=== PATIENT | female | born 1945 | race Caucasian/White ===

== ENCOUNTER → 2016-07-25 | Outpatient (REF) | payer MEDICARE, OTHER | LOC: M SFHCPLAZ 13:39 | PROVIDERS: ATTEND Family Medicine | DX: R00.0 Tachycardia, unspecified (principal); Z53.8 Procedure and treatment not carried out for other reasons ==

== ENCOUNTER → 2016-09-09 | Outpatient (CLI) | payer MEDICARE, OTHER ==
--- NOTE | 2016-09-09 14:36 | REP ---
Chest two views HISTORY: Hypertension Comparison: 08/29/2014 The lungs are clear. The heart is normal in size. The pulmonary vasculature is normal in appearance. The bony structure is intact. IMPRESSION: No acute disease. Signed by Rafita Mckeon MD 09/09/2016 02:27 P
== END ==
LOC: M RAD 14:12
PROVIDERS: ATTEND Physician Assistant
DX: I11.9 Hypertensive heart disease without heart failure (principal)

== ENCOUNTER → 2016-11-13 | Outpatient (CLI) | payer MEDICARE, BC, OTHER ==
--- NOTE | 2016-11-14 07:55 | REP ---
Clinical: Complex renal cyst. Technique: Real time michel scale ultrasound examination using curved array transducer. Comparison: 11/09/2015, 04/23/2015. Findings: The right kidney measures 10.5 x 5.0 x 6.2 cm and appears relatively normal in reniform shape and echogenicity without hydronephrosis, nephrolithiasis or mass lesion. Septated mid to upper pole cyst measures 3.9 x 3.6 x 3.8 cm and is essentially unchanged compared to 04/23/2015. The left kidney measures 10.5 x 5.8 x 5.9 cm and appears normal in reniform shape and echogenicity without hydronephrosis, nephrolithiasis, cystic or mass lesion. Bladder is grossly unremarkable. Impression: Stable right renal cyst with a single thin septation unchanged compared to 2014. Otherwise normal renal ultrasound. Signed by Flavio Bradley MD 11/13/2016 10:29 A
== END ==
LOC: M RAD 09:49
PROVIDERS: ATTEND Internal Medicine
DX: N28.1 Cyst of kidney, acquired (principal)

== ENCOUNTER → 2016-12-26 | Outpatient (CLI) | payer MEDICARE, BC, OTHER ==
[2016-12-26 10:14] LABS: MEAN CORPUSCULAR HEMOGLOBIN 29.8 pg (27.0-33.0); MEAN CORPUSCULAR HGB CONC 33.4 g/dl (32.0-36.5); MEAN CORPUSCULAR VOLUME 89.1 fl (80.0-96.0); RED CELL DISTRIBUTION WIDTH 12.6 % (11.5-14.5); WHITE BLOOD COUNT 6.4 K/mm3 (4.0-10.0)
== END ==
LOC: M LAB 09:29
PROVIDERS: ATTEND Internal Medicine
DX: R14.1 Gas pain (principal)

== ENCOUNTER → 2017-01-12 | Outpatient (CLI) | payer MEDICARE, BC, OTHER ==
--- NOTE | 2017-01-12 12:38 | REPMRS ---
Patient History The patient states she has not had a clinical breast exam in over a year. Patient is postmenopausal and is nulliparous. Family history of breast cancer in mother and breast cancer in maternal grandmother. Digital Mammo Screening Bilat: January 12, 2017 - Exam #: [id number] Bilateral CC and MLO view(s) were taken. Technologist: Chula Lawson, Technologist Prior study comparison: May 24, 2015, right breast digital mammo diagnostic unilateral performed at [facility]. May 01, 2015, digital woman screen mammo, performed at [facility]. October 12, 2013, digital woman screen mammo, performed at [facility]. FINDINGS: There are scattered fibroglandular densities. There has been no change in the appearance of the mammogram from the prior studies. There is a mild amount of scattered fibroglandular density which is fairly symmetric. There is no interval development of dominant mass, architectural distortion, or clustered microcalcification suggestive of malignancy. ASSESSMENT: BI-RADS/ACR category 1 mammogram. Negative. Recommendation Routine screening mammogram in 1 year (for women over age 40). This mammogram was interpreted with the aid of an FDA-approved computer-aided dectection system. Electronically Signed By: Ander Connors MD 01/12/17 [id number]
== END ==
LOC: M RAD 12:03
PROVIDERS: ATTEND Internal Medicine
DX: Z12.31 Encounter for screening mammogram for malignant neoplasm of breast (principal); Z78.0 Asymptomatic menopausal state; Z92.89 Personal history of other medical treatment; Z80.3 Family history of malignant neoplasm of breast

== ENCOUNTER 2017-04-19 20:51 | Emergency (ER) | payer MEDICARE, BC, OTHER ==
[~2017-04-19] VITALS: Ht 162.6 cm; Wt 118.2 kg
[2017-04-19] MEDS ORDERED: SPIR25TA2 PO (21:12)
[2017-04-19] MEDS ORDERED: CEFT500T3 PO (21:12)
[2017-04-19] MEDS ORDERED: OCUTTAB2 PO (21:12)
[2017-04-19] MEDS ORDERED: ASPI81TA85 PO (21:12)
[2017-04-19] MEDS ORDERED: TRAV04OPD OU (21:12)
[2017-04-19] MEDS ORDERED: OPTI0.5D5 OU (21:12)
[2017-04-19] MEDS ORDERED: ATOR1TAB19 PO (21:12)
[2017-04-19] MEDS ORDERED: RAMI10CA PO (21:12)
[2017-04-19] MEDS ORDERED: ONDANSETRON 4 MG TAB (S0181) PO ONE (22:15)
[2017-04-19] MEDS ORDERED: diphenhydrAMINE 50 MG CAP PO ONE (23:00)
[2017-04-19] MEDS ORDERED: ALBUTEROL 90 MCG/ACT 8GM HFA INHALER INH ONE (23:00)
[2017-04-19] MEDS ORDERED: ZITHTAB PO (23:05)
[2017-04-19] MEDS ORDERED: predniSONE 20 MG TAB PO ONE (23:15)
[2017-04-19] MEDS ORDERED: MEDR4PAK PO (23:22)
[2017-04-20 00:17] VITALS: BP 165/99
== END 2017-04-20 00:18 | disposition home or self-care (01) ==
LOC: M ED 20:51
DX: R13.10 Dysphagia, unspecified (principal); T78.40XA Allergy, unspecified, initial encounter

== ENCOUNTER 2018-04-21 10:23 | Day surgery (SDC) | payer MEDICARE, BC, OTHER ==
[~2018-04-21 10:23] MED LIST: ACETAMINOPHEN 325 MG TAB PO; PHENYLEPHRINE HCL 10 % OPHTH. SOL 5ML OS; PROPARACAINE 0.5% OPHTH SOL 15ML OS
[2018-04-21] MEDS: PHENYLEPHRINE 2.5% OPHTH SOL 2ML OS (12:18)
[2018-04-21] MEDS: OFLOXACIN 0.3 % (OCUFLOX) OPTH SOL 5ML OS (12:18)
[2018-04-21] MEDS: CYCLOPENTOLATE 2% OPHTH SOLN 2ML BTL OS (12:18)
[2018-04-21] MEDS: TROPICAMIDE 1% OPHTH SOLN 2ML OS (12:18)
[2018-04-21] MEDS: LIDOCAINE 3.5 % 1ML OPHTH TOPICAL GEL OU (12:19)
[2018-04-21] MEDS ORDERED: MIDAZOLAM INJ 2 MG/2 ML VIAL (J2250) As Ordered (14:06)
[2018-04-21] MEDS ORDERED: fentaNYL 100 MCG/2 ML INJECTION (J3010) As Ordered (14:06)
[2018-04-21] MEDS: BSS with VANC/TOB/EPI for EYE CASES IR (14:07)
[2018-04-21] MEDS: HEALON DUET PRO(HEALON 10MG/ML 0.55ML & HEALON ENDOCOAT 30MG/ML 0.85ML) As Ordered ×2 (14:07→14:15)
[2018-04-21] MEDS: LIDOCAINE 1% SDV 5 ML VIAL As Ordered (14:07)
[2018-04-21] MEDS: POVIDONE-IODINE 5% OPHTH PREP SOL 30ML As Ordered (14:07)
[2018-04-21] MEDS: ACETYLCHOLINE OPHTH SOLN 1% 2ML (MIOCHOL-E) As Ordered ×2 (14:07→14:15)
[2018-04-21] MEDS: KETOROLAC 0.5% OPHTH SOLN OS (14:20)
[2018-04-21] MEDS ORDERED: TRIMETHOBENZAMIDE 300 MG CAP PO (15:00)
[2018-04-21] MEDS ORDERED: ONDANSETRON 4MG/2ML VIAL (J2405) IV (15:00)
== END 2018-04-21 15:18 | disposition home or self-care (01) ==
LOC: M SDC 10:23
DX: H25.9 Unspecified age-related cataract (principal); H40.812 Glaucoma with increased episcleral venous pressure, left eye; I10 Essential (primary) hypertension; I51.7 Cardiomegaly; Z79.82 Long term (current) use of aspirin; Z79.899 Other long term (current) drug therapy; Z88.0 Allergy status to penicillin; Z88.2 Allergy status to sulfonamides
CPT/HCPCS: 66984

== ENCOUNTER 2018-04-28 09:22 | Day surgery (SDC) | payer MEDICARE, BC, OTHER ==
[~2018-04-28] VITALS: Ht 165.1 cm; Wt 116.6 kg
[~2018-04-28 09:22] MED LIST changes: -ACETAMINOPHEN 325 MG TAB PO; +ACETAMINOPHEN 325 MG TAB PO PRN; +ALEV220T22 PO; +ASPI81TA85 PO; +ATOR1TAB19 PO; +BSS with VANC/TOB/EPI for EYE CASES IR ONE; +CEFT500T3 PO; +CEFUROXIME 1MG/0.1ML INTRACAMERAL INJ As Ordered ONE; +CYCLOPENTOLATE 2% OPHTH SOLN 2ML BTL OD ONE; +HEALON DUET PRO(HEALON 10MG/ML 0.55ML & HEALON ENDOCOAT 30MG/ML 0.85ML) As Ordered ONE; +LIDOCAINE 1% SDV 5 ML VIAL As Ordered ONE; +LIDOCAINE 3.5 % 1ML OPHTH TOPICAL GEL OU ONE; +MEDR4PAK PO; +MIDAZOLAM INJ 2 MG/2 ML VIAL (J2250) As Ordered ONE; +OCUTTAB2 PO; +OFLOXACIN 0.3 % (OCUFLOX) OPTH SOL 5ML OD ONE; +OPTI0.5D5 OU; +PHENYLEPHRINE 2.5% OPHTH SOL 2ML OD ONE; +PHENYLEPHRINE HCL 10 % OPHTH. SOL 5ML OD PRN; -PHENYLEPHRINE HCL 10 % OPHTH. SOL 5ML OS; +POVIDONE-IODINE 5% OPHTH PREP SOL 30ML As Ordered ONE; +PROPARACAINE 0.5% OPHTH SOL 15ML OD PRN; -PROPARACAINE 0.5% OPHTH SOL 15ML OS; +RAMI1CAP26 PO; +SPIR-10 PO; +SYST1SOL OU; +TRAV04OPD OU; +TROPICAMIDE 1% OPHTH SOLN 2ML OD ONE; +ZITHTAB PO; +fentaNYL 100 MCG/2 ML INJECTION (J3010) As Ordered ONE
[2018-04-28 12:20] VITALS: BP 174/77
[2018-04-28] MEDS ORDERED: KETOROLAC 0.5% OPHTH SOLN OD ONE (12:30)
[2018-04-28] MEDS ORDERED: TRIMETHOBENZAMIDE 300 MG CAP PO PRN (12:30)
[2018-04-28] MEDS ORDERED: ONDANSETRON 4MG/2ML VIAL (J2405) IV PRN (12:30)
--- NOTE | 2018-05-25 16:01 | RO ---
DATE OF PROCEDURE: 04/28/2018 PREOPERATIVE DIAGNOSIS: Cataract and glaucoma right eye. POSTOPERATIVE DIAGNOSIS: Cataract and glaucoma right eye. PROCEDURE: Femtosecond laser and phacoemulsification, intraocular lens implantation with the help of the ORA and also endoscopic photocoagulation and placement of the Glaukos iStent. Intraocular lens power used was ZKB00 Power 15 diopters. SURGEON: Dr. Janeth Lindsey DEPUTY SHERIFF LIEUTENANT: None. ANESTHESIA: COMPLICATION: None. DESCRIPTION OF PROCEDURE: The patient was first brought to the laser room and placed in a supine position and after adequate suction and patient interface was placed, OCT images were taken and the laser was activated. Capsulorrhexis lens fragmentation and arcuate incisions along with corneal incisions were done according to plan, following which the suction was released and the patient was brought to the operating room laid in supine position. The eye was prepped and draped in a sterile fashion for ophthalmic surgery, and a lid speculum was placed. All the incisions were opened per plan, and EndoCoat was injected into the anterior chamber. Capsulorrhexis was then removed. Phacoemulsification was done in a [id number] method within the capsular bag followed by aspiration of the cortical material with the help of an aspiration and irrigation cannula. Healon was placed into the capsular bag, anterior chamber. ORA images were taken and intraocular lens was chosen and placed in the capsular bag. Healon was then placed into the ciliary sulcus; and with the help visualize the ciliary processes on the video screen with the help of the EndoProbe, endocyclophotocoagulation was done for 280 degrees. Good results were noted as seen by the shrinking of the ciliary processes on the video screen. The patient's head was then turned away from the surgeon and microscope towards the surgeon, under high-mag with the help of the goniolens, iStent Glaukos model [id number] was then placed in the inferonasal quadrant. Good blood reflex was noted. Excess viscoelastic was aspirated. Wound has hydrated. Intracameral antibiotic was given. No leaks were noted. Lid speculum removed, and the patient was returned to the recovery room where postoperative instructions were given in detail.
== END 2018-04-28 12:30 | disposition home or self-care (01) ==
LOC: M SDC 09:22
PROVIDERS: ATTEND Ophthalmology
DX: H26.9 Unspecified cataract (principal); H40.9 Unspecified glaucoma; I10 Essential (primary) hypertension; I51.7 Cardiomegaly; M12.9 Arthropathy, unspecified; Z88.0 Allergy status to penicillin; Z88.2 Allergy status to sulfonamides; Z79.899 Other long term (current) drug therapy; Z90.710 Acquired absence of both cervix and uterus
CPT/HCPCS: 66183; 66711; 66984; C1783; J2250; J3010; V2788

== ENCOUNTER 2018-10-08 16:51 | Emergency (ER) | payer MEDICARE, BC, OTHER ==
[~2018-10-08] VITALS: Ht 162.6 cm; Wt 118.2 kg
[~2018-10-08 16:51] MED LIST changes: -ACETAMINOPHEN 325 MG TAB PO PRN; -BSS with VANC/TOB/EPI for EYE CASES IR ONE; -CEFUROXIME 1MG/0.1ML INTRACAMERAL INJ As Ordered ONE; -CYCLOPENTOLATE 2% OPHTH SOLN 2ML BTL OD ONE; -HEALON DUET PRO(HEALON 10MG/ML 0.55ML & HEALON ENDOCOAT 30MG/ML 0.85ML) As Ordered ONE; -LIDOCAINE 1% SDV 5 ML VIAL As Ordered ONE; -LIDOCAINE 3.5 % 1ML OPHTH TOPICAL GEL OU ONE; -MIDAZOLAM INJ 2 MG/2 ML VIAL (J2250) As Ordered ONE; -OFLOXACIN 0.3 % (OCUFLOX) OPTH SOL 5ML OD ONE; -PHENYLEPHRINE 2.5% OPHTH SOL 2ML OD ONE; -PHENYLEPHRINE HCL 10 % OPHTH. SOL 5ML OD PRN; -POVIDONE-IODINE 5% OPHTH PREP SOL 30ML As Ordered ONE; -PROPARACAINE 0.5% OPHTH SOL 15ML OD PRN; -TROPICAMIDE 1% OPHTH SOLN 2ML OD ONE; -fentaNYL 100 MCG/2 ML INJECTION (J3010) As Ordered ONE
[2018-10-08] MEDS ORDERED: hydrOXYzine 25 MG TAB PO STA (18:03)
[2018-10-08] MEDS ORDERED: HYDR-3363 PO (18:05)
[2018-10-08 18:36] VITALS: BP 178/79
== END 2018-10-08 18:38 | disposition home or self-care (01) ==
LOC: M ED 16:51
DX: F43.20 Adjustment disorder, unspecified (principal); I10 Essential (primary) hypertension; E78.00 Pure hypercholesterolemia, unspecified; F41.9 Anxiety disorder, unspecified; H40.9 Unspecified glaucoma; Z79.899 Other long term (current) drug therapy; Z88.0 Allergy status to penicillin; Z88.1 Allergy status to other antibiotic agents; Z88.2 Allergy status to sulfonamides

== ENCOUNTER → 2018-10-22 | Outpatient (CLI) | payer MEDICARE, BC, OTHER ==
[~2018-10-22] MED LIST changes: +HYDR-3363 PO
[2018-10-22 14:05] LABS: APPEARANCE, URINE HAZY (CLEAR); BACTERIA, URINE AUTO 2+ (NEGATIVE); BILIRUBIN, URINE AUTO NEGATIVE (NEGATIVE); BLOOD, URINE BLOOD NEGATIVE (NEGATIVE); COLOR, URINE YELLOW (YELLOW); GLUCOSE, URINE (UA) AUTO NEGATIVE (NEGATIVE); KETONE, URINE AUTO NEGATIVE (NEGATIVE); LEUKOCYTE ESTERASE, URINE AUTO 3+ (NEGATIVE); NITRITE, URINE AUTO POSITIVE (NEGATIVE); PROTEIN, URINE AUTO NEGATIVE (NEGATIVE); RBC, URINE AUTO 8 /HPF (0-3); SPECIFIC GRAVITY URINE AUTO 1.012 (1.002-1.035); SQUAMOUS EPITHELIAL CELL UR AU 0 /HPF (0-6); UROBILINOGEN, URINE AUTO 0.2 mg/dL (0.0-2.0); WBC, URINE AUTO 76 /HPF (0-3)
[2018-10-22 14:19] LABS: ALBUMIN 3.4 GM/DL (3.2-5.2); ALT/SGPT 21 U/L (12-78); BILIRUBIN,TOTAL 0.5 MG/DL (0.2-1.0); BLOOD UREA NITROGEN 17 MG/DL (7-18); CALCIUM LEVEL 8.9 MG/DL (8.8-10.2); CARBON DIOXIDE LEVEL 29 MEQ/L (21-32); CHLORIDE LEVEL 104 MEQ/L (98-107); CREATININE FOR GFR 0.95 MG/DL (0.55-1.30); GLOMERULAR FILTRATION RATE > 60.0 (>39); GLUCOSE, FASTING 89 MG/DL (70-100); POTASSIUM SERUM 4.4 MEQ/L (3.5-5.1); SODIUM LEVEL 139 MEQ/L (136-145); TOTAL PROTEIN 7.5 GM/DL (6.4-8.2)
== END ==
LOC: M LAB 12:52
PROVIDERS: ATTEND Student in an Organized Health Care Education/Training Program
DX: R10.31 Right lower quadrant pain (principal); R82.998 Other abnormal findings in urine
CPT/HCPCS: 36415; 80053; 81001; 87088; 87186; G0463

== ENCOUNTER → 2018-10-26 | Outpatient (CLI) | payer MEDICARE, BC, OTHER ==
[~2018-10-26] MED LIST changes: +GASTROGRAFIN SOLUTION 30ML (Q9963) As Ordered ONE
--- NOTE | 2018-10-26 18:00 | REP ---
CT ABDOMEN AND PELVIS WITH ORAL AND IV CONTRAST: TECHNIQUE: Axial contrast enhanced images from the lung bases to the pubic symphysis using 100 mL Isovue 370 intravenous contrast material with multiplanar reformations. Visualized lung bases demonstrate mild fibrotic changes. There is a small hiatal hernia. Liver and spleen are unremarkable. There is a right adrenal nodule measuring 1.6 cm in diameter, probably representing an adenoma. Compared to a prior CT of the chest 12/24/2007, this has minimally increased in size. Left adrenal gland is normal. The pancreas demonstrates no mass. The cyst in the lower posterior right kidney measures 4.2 cm in diameter. There is no hydronephrosis bilaterally. There is no abdominal aortic aneurysm. There is no adenopathy. There is no free air or free fluid. There is no bowel wall thickening. There is sigmoid and left colonic diverticulosis with no evidence of acute diverticulitis. No pelvic mass is seen status-post hysterectomy. The urinary bladder is not distended and is not well evaluated. No anterior abdominal wall defect is seen. IMPRESSION: Small hiatal hernia. Right adrenal adenoma. Right renal cyst. No free air, free fluid or mass. Sigmoid and left colonic diverticulosis without acute diverticulitis. Electronically Signed by Pipe George MD 10/26/2018 08:17 P
== END ==
LOC: M RAD 13:41
PROVIDERS: ATTEND Internal Medicine
DX: R14.0 Abdominal distension (gaseous) (principal)
CPT/HCPCS: 74177; Q9963

== ENCOUNTER → 2019-01-14 | Outpatient (CLI) | payer MEDICARE, BC ==
[~2019-01-14] MED LIST changes: -GASTROGRAFIN SOLUTION 30ML (Q9963) As Ordered ONE
--- NOTE | 2019-01-14 12:46 | REP ---
BILATERAL SCREENING DIGITAL MAMMOGRAM WITH 3D TOMOSYNTHESIS: There are no palpable abnormalities or other breast complaints. The the patient states she has not had a clinical breast examination in over a year. The the patient states she performs self-breast examinations 12 times per year. The Tyrer-Cuzick Score is: 8.0% . Comparison studies are 01/12/2017 and 10/12/2013. The There are scattered areas of fibroglandular density. There is no dominant mass, micro calcific cluster or architectural distortion that would indicate malignancy. There are no additional findings on 3D tomosynthesiss. There is no change from the prior study. Impression: BIRADS/ACR category 1 mammogram. Negative. Recommendation: Routine annual screening mammography. This mammogram was interpreted with the aid of a FDA approved computer-aided detection system. A. Negative mammogram reports should not delay biopsy if a dominant or clinically suspicious mass is present. B. Not all breast cancers are identified by mammography or tomosynthesis. C. Adenosis and dense breasts may obscure an underlying neoplasm. Patient letter M1. Electronically Signed by Pipe Waddell MD 01/14/2019 12:37 P
== END ==
LOC: M WHC 10:08
PROVIDERS: ATTEND Internal Medicine
DX: Z12.31 Encounter for screening mammogram for malignant neoplasm of breast (principal)

== ENCOUNTER → 2019-12-23 | Outpatient (REF) | payer MEDICARE, BC, OTHER ==
[~2019-12-23] MED LIST changes: -ASPI81TA85 PO; +ASPI81TA86 PO
[2020-02-08 04:43] LABS: CALCIUM LEVEL 9.5 MG/DL (8.8-10.2); CREATININE FOR GFR 1.08 MG/DL (0.55-1.30); GLOMERULAR FILTRATION RATE 52.9 (>39); POTASSIUM SERUM 4.5 MEQ/L (3.5-5.1)
== END ==
LOC: M SFHCPLAZ 12:25
DX: Z79.899 Other long term (current) drug therapy (principal)

== ENCOUNTER → 2020-04-19 | Outpatient (CLI) | payer MEDICARE, BC ==
--- NOTE | 2020-04-19 16:05 | REPMRS ---
Patient History The patient states she has not had a clinical breast exam in over a year. Family history of breast cancer in mother, breast cancer in maternal grandmother, endometrial cancer at age 58 in sister. No Hormone Replacement Therapy Digital Woman Screen Mammo: April 19, 2020 - Exam #: [id number] Bilateral CC and MLO view(s) were taken. Technologist: Cindy Blount, Technologist Prior study comparison: January 14, 2019, bilateral digital woman screen mammo performed at [facility]. January 12, 2017, bilateral digital mammo screening bilat, performed at [facility]. May 01, 2015, digital woman screen mammo performed at [facility]. FINDINGS: The breast tissue is almost entirely fat. The Volpara volumetric breast density category is: A. There has been no change in the appearance of the mammogram from the prior studies. There is no interval development of dominant mass, architectural distortion, or grouped microcalcification typical of malignancy. 3-D tomosynthesis shows no additional findings. Assessment: BI-RADS/ACR category 1 mammogram. Negative Mammogram. Recommendation Routine screening mammogram of both breasts in 1 year (for women over age 40). This patient's [facility] Lifetime Breast Cancer RIsk is estimated at 7.0 %. This mammogram was interpreted with the aid of an FDA-approved computer-aided dectection system. Electronically Signed By: Ander Connors MD 04/19/20 [id number]
== END ==
LOC: M WHC 13:44
PROVIDERS: ATTEND Hospitalist
DX: Z12.31 Encounter for screening mammogram for malignant neoplasm of breast (principal)

== ENCOUNTER → 2020-11-15 | Outpatient (CLI) | payer MEDICARE, BC, OTHER ==
--- NOTE | 2020-11-15 15:18 | REP ---
INDICATION: LOCALIZED EDEMA / LABS 1ST COMPARISON: 09/09/2016 TECHNIQUE: PA and lateral. FINDINGS: The mediastinum and cardiac silhouette are normal. The lung peraza demonstrate chronic appearing changes without acute consolidation, effusion, or pneumothorax. The skeletal structures are intact and normal. IMPRESSION: No acute cardiopulmonary process. <Electronically signed by Flavio Bradley > 11/15/20 [id number]
[2020-11-15 15:35] LABS: HEMATOCRIT 39.6 % (36.0-47.0); HEMOGLOBIN 12.7 g/dl (12.0-15.5); MEAN CORPUSCULAR HEMOGLOBIN 28.2 pg (27.0-33.0); MEAN CORPUSCULAR HGB CONC 32.1 g/dl (32.0-36.5); MEAN CORPUSCULAR VOLUME 87.8 fl (80.0-96.0); PLATELET COUNT, AUTOMATED 208 10^3/uL (150-450); RED BLOOD COUNT 4.51 10^6/uL (4.00-5.40); WHITE BLOOD COUNT 13.8 10^3/uL (4.0-10.0)
[2020-11-15 15:43] LABS: BLOOD UREA NITROGEN 16 MG/DL (7-18); CALCIUM LEVEL 8.4 MG/DL (8.8-10.2); CARBON DIOXIDE LEVEL 26 MEQ/L (21-32); CHLORIDE LEVEL 107 MEQ/L (98-107); CREATININE FOR GFR 0.83 MG/DL (0.55-1.30); GLOMERULAR FILTRATION RATE > 60.0 (>39); GLUCOSE, FASTING 116 MG/DL (70-100); NT-PRO BNP 241 PG/ML (<125); POTASSIUM SERUM 3.6 MEQ/L (3.5-5.1); SODIUM LEVEL 139 MEQ/L (136-145)
== END ==
LOC: M RAD 14:29 → M LAB 14:29
PROVIDERS: ATTEND Physician Assistant
DX: R60.0 Localized edema (principal); J98.4 Other disorders of lung

== ENCOUNTER → 2020-12-06 | Outpatient (REF) | payer MEDICARE, OTHER | LOC: M SFHCPLAZ 15:00 | PROVIDERS: ATTEND Family Medicine | DX: R73.03 Prediabetes (principal) ==

== ENCOUNTER → 2020-12-12 | Outpatient (CLI) | payer MEDICARE, BC, OTHER ==
[2020-12-12 13:44] LABS: HEMOGLOBIN A1c 6.7 %
== END ==
LOC: M LAB 12:18
PROVIDERS: ATTEND Student in an Organized Health Care Education/Training Program
DX: R73.03 Prediabetes (principal)

== ENCOUNTER → 2020-12-17 | Outpatient (CLI) | payer MEDICARE, BC, OTHER ==
[2020-12-17 11:00] LABS: ALBUMIN 3.3 GM/DL (3.2-5.2); ALT/SGPT 23 U/L (12-78); BILIRUBIN,TOTAL 0.5 MG/DL (0.2-1.0); BLOOD UREA NITROGEN 25 MG/DL (7-18); CARBON DIOXIDE LEVEL 29 MEQ/L (21-32); CHLORIDE LEVEL 107 MEQ/L (98-107); CHOLESTEROL LEVEL 174 MG/DL (<200); CHOLESTEROL RISK RATIO 3.346 (<5); CREATININE FOR GFR 0.93 MG/DL (0.55-1.30); GLOMERULAR FILTRATION RATE > 60.0 (>39); GLUCOSE, FASTING 127 MG/DL (70-100); HDL CHOLESTEROL 52 MG/DL (>40); LDL CHOLESTEROL 98 MG/DL (<100); NON-HDL-C 122 MG/DL; POTASSIUM SERUM 4.4 MEQ/L (3.5-5.1); SODIUM LEVEL 142 MEQ/L (136-145); TOTAL PROTEIN 7.3 GM/DL (6.4-8.2); TRIGLYCERIDES LEVEL 118 MG/DL (<150)
== END ==
LOC: M LAB 09:24
PROVIDERS: ATTEND Physician Assistant
DX: R60.0 Localized edema (principal); E78.00 Pure hypercholesterolemia, unspecified

== ENCOUNTER → 2021-03-15 | Outpatient (REF) | payer MEDICARE, OTHER | LOC: M SFHCPLAZ 10:52 | PROVIDERS: ATTEND Family Medicine | DX: E78.2 Mixed hyperlipidemia (principal) ==

== ENCOUNTER → 2021-03-20 | Outpatient (CLI) | payer MEDICARE, OTHER ==
[2021-03-20 11:30] LABS: CALCIUM LEVEL 9.4 MG/DL (8.8-10.2); CREATININE FOR GFR 1.29 MG/DL (0.55-1.30); GLOMERULAR FILTRATION RATE 42.9 (>39); POTASSIUM SERUM 4.4 MEQ/L (3.5-5.1)
== END ==
LOC: M LAB 09:43
PROVIDERS: ATTEND Physician Assistant
DX: R60.0 Localized edema (principal); E78.2 Mixed hyperlipidemia

== ENCOUNTER → 2021-03-20 | Outpatient (CLI) | payer MEDICARE, OTHER ==
[2021-03-20 11:30] LABS: CHOLESTEROL RISK RATIO 4.325 (<5)
== END ==
LOC: M LAB 09:46
PROVIDERS: ATTEND Student in an Organized Health Care Education/Training Program
DX: E78.2 Mixed hyperlipidemia (principal)

== ENCOUNTER → 2021-11-28 | Outpatient (CLI) | payer MEDICARE, BC, OTHER ==
[2021-11-28 14:32] LABS: CALCIUM LEVEL 9.3 MG/DL (8.8-10.2); CREATININE FOR GFR 1.15 MG/DL (0.55-1.30); MAGNESIUM LEVEL 2.4 MG/DL (1.8-2.4); POTASSIUM SERUM 4.2 MEQ/L (3.5-5.1)
== END ==
LOC: M LAB 12:52
PROVIDERS: ATTEND Physician Assistant
DX: I11.9 Hypertensive heart disease without heart failure (principal); E83.42 Hypomagnesemia

== ENCOUNTER → 2022-07-14 | Outpatient (CLI) | payer MEDICARE, BC, OTHER ==
[2022-07-14 11:21] LABS: ALBUMIN 3.4 G/DL (3.2-5.2); BILIRUBIN,TOTAL 0.6 MG/DL (0.3-1.2); CHOLESTEROL RISK RATIO 3.29 (<5); CREATININE FOR GFR 1.21 MG/DL (0.55-1.30); GLOMERULAR FILTRATION RATE 46.1 (>39); HDL CHOLESTEROL 45.8 MG/DL (>40); POTASSIUM SERUM 4.6 MMOL/L (3.5-5.1); TOTAL PROTEIN 6.9 G/DL (5.7-8.2)
== END ==
LOC: M LAB 09:20
PROVIDERS: ATTEND Physician Assistant
DX: I11.9 Hypertensive heart disease without heart failure (principal); E78.00 Pure hypercholesterolemia, unspecified

== ENCOUNTER 2023-03-15 13:25 | Emergency (ER) | payer MEDICARE, BC, OTHER ==
[~2023-03-15 13:25] MED LIST changes: +CLEO300C2 PO
[2023-03-15 14:16] LABS: BASO % 0.3 % (0.0-1.0); EOS # 0.1 10^3/uL (0.0-0.5); EOS % 0.6 % (0.0-3.0); HEMATOCRIT 40.1 % (36.0-47.0); HEMOGLOBIN 13.1 g/dl (12.0-15.5); LYMPH # 1.7 10^3/uL (1.5-5.0); LYMPH % 17.7 % (24.0-44.0); MEAN CORPUSCULAR HEMOGLOBIN 29.1 pg (27.0-33.0); MEAN CORPUSCULAR HGB CONC 32.7 g/dl (32.0-36.5); MEAN CORPUSCULAR VOLUME 89.1 fl (80.0-96.0); MONO # 0.5 10^3/uL (0.0-0.8); MONO % 5.7 % (2.0-8.0); NEUTROPHILS % 75.5 % (36.0-66.0); PLATELET COUNT, AUTOMATED 245 10^3/uL (150-450); WHITE BLOOD COUNT 9.3 10^3/uL (4.0-10.0)
[2023-03-15] MEDS ORDERED: ECOT81TA5 PO (14:27)
[2023-03-15] MEDS ORDERED: TORS20TA2 (14:31)
[2023-03-15] MEDS ORDERED: PARO20TA3 (14:31)
[2023-03-15 14:43] LABS: LIPASE 28 U/L (12-53)
[2023-03-15 14:46] LABS: ALBUMIN 3.4 G/DL (3.2-5.2); ALKALINE PHOSPHATASE 96 U/L (46-116); ALT/SGPT 11 U/L (7.0-40); AST/SGOT 13 U/L (<34); BILIRUBIN,DIRECT 0.1 MG/DL (<0.4); BILIRUBIN,TOTAL 0.4 MG/DL (0.3-1.2); BLOOD UREA NITROGEN 26 MG/DL (9-23); CALCIUM LEVEL 8.7 MG/DL (8.3-10.6); CARBON DIOXIDE LEVEL 25 MMOL/L (20-31); CHLORIDE LEVEL 103 MMOL/L (98-107); CK-MB VALUE MASS < 1.0 NG/ML (<3.6); CREATININE FOR GFR 1.17 MG/DL (0.55-1.30); GLOMERULAR FILTRATION RATE 47.7 (>39); GLUCOSE, FASTING 154 MG/DL (74-106); POTASSIUM SERUM 4.4 MMOL/L (3.5-5.1); SODIUM LEVEL 138 MMOL/L (136-145)
[2023-03-15 14:54] LABS: CPK CREATINE PHOSPHOKINASE 71 U/L (34-145)
[2023-03-15] MEDS ORDERED: SUCR1TA PO (16:17)
[2023-03-15 16:41] VITALS: BP 130/62; TEMP 96.9; O2SAT 96
== END 2023-03-15 16:50 | disposition home or self-care (01) ==
LOC: M ED 13:25 → EDBD 13:25 → M ED 16:50
DX: R25.1 Tremor, unspecified (principal); R10.13 Epigastric pain; I10 Essential (primary) hypertension; E78.5 Hyperlipidemia, unspecified; Z79.899 Other long term (current) drug therapy; Z88.0 Allergy status to penicillin; Z88.2 Allergy status to sulfonamides

== ENCOUNTER 2023-03-21 07:43 | Emergency (ER) | payer MEDICARE, BC, OTHER ==
[~2023-03-21] VITALS: Ht 165.1 cm; Wt 112.7 kg
[~2023-03-21 07:43] MED LIST changes: +ECOT81TA5 PO; +PARO20TA3; +SUCR1TA PO; +TORS20TA2
[2023-03-21 08:57] LABS: BASO % 0.3 % (0.0-1.0); EOS # 0.1 10^3/uL (0.0-0.5); EOS % 0.9 % (0.0-3.0); HEMATOCRIT 41.2 % (36.0-47.0); HEMOGLOBIN 13.5 g/dl (12.0-15.5); LYMPH # 1.8 10^3/uL (1.5-5.0); LYMPH % 20.7 % (24.0-44.0); MEAN CORPUSCULAR HEMOGLOBIN 29.1 pg (27.0-33.0); MEAN CORPUSCULAR HGB CONC 32.8 g/dl (32.0-36.5); MEAN CORPUSCULAR VOLUME 88.8 fl (80.0-96.0); MONO # 0.7 10^3/uL (0.0-0.8); MONO % 8.6 % (2.0-8.0); NEUTROPHILS % 69.3 % (36.0-66.0); PLATELET COUNT, AUTOMATED 240 10^3/uL (150-450); RED BLOOD COUNT 4.64 10^6/uL (4.00-5.40); WHITE BLOOD COUNT 8.6 10^3/uL (4.0-10.0)
[2023-03-21 09:13] LABS: INR 1.08; PROTHROMBIN TIME 13.7 SECONDS (12.5-14.5)
[2023-03-21] MEDS ORDERED: IPRATROPIUM 0.5MG/ALBUTEROL 2.5MG INH SOL UD 3ML (DUONEB) NEB ONE (09:15)
[2023-03-21] MEDS ORDERED: methylPREDNISolone 125MG 2ML VIAL IV ONE (09:15)
[2023-03-21] MEDS ORDERED: ALBUTEROL SULFATE 2.5MG/0.5ML INH NEB SOLN INH ONE (09:15)
[2023-03-21 09:46] LABS: THYROXINE (T4) 10.7 UG/DL (4.5-10.9)
[2023-03-21 09:47] LABS: THYROID STIMULATING HORMONE 1.628 uIU/ML (0.55-4.78)
[2023-03-21 09:48] LABS: ALBUMIN 3.6 G/DL (3.2-5.2); BILIRUBIN,DIRECT 0.2 MG/DL (<0.4); BILIRUBIN,TOTAL 0.4 MG/DL (0.3-1.2); CALCIUM LEVEL 9.1 MG/DL (8.3-10.6); CK-MB VALUE MASS 1.4 NG/ML (<3.6); CREATININE FOR GFR 1.1 MG/DL (0.55-1.30); GLOMERULAR FILTRATION RATE 51.3 (>39); MB/CK RELATIVE INDEX 2.22 (< OR =4); POTASSIUM SERUM 3.8 MMOL/L (3.5-5.1); TOTAL PROTEIN 7.5 G/DL (5.7-8.2)
[2023-03-21 10:55] LABS: MB/CK RELATIVE INDEX 1.49 (< OR =4)
[2023-03-21] MEDS ORDERED: ISOVUE-370 76% 100ML VIAL As Ordered ONE (11:25)
[2023-03-21] MEDS ORDERED: ALBU6.7H6 INH (13:08)
[2023-03-21] MEDS ORDERED: PRED20TA PO (13:08)
[2023-03-21 13:20] VITALS: BP 150/69; TEMP 97; O2SAT 96
== END 2023-03-21 13:39 | disposition home or self-care (01) ==
LOC: EDBD 07:43 → M ED 07:43
DX: R06.00 Dyspnea, unspecified (principal); B34.9 Viral infection, unspecified; F41.9 Anxiety disorder, unspecified; I10 Essential (primary) hypertension; E78.00 Pure hypercholesterolemia, unspecified; Z88.0 Allergy status to penicillin; Z88.2 Allergy status to sulfonamides
CPT/HCPCS: 36415; 71045; 71275; 80047; 80048; 80076; 82550; 82553; 83605; 83880; 84436; 84443; 84484; 85025; 85610; 87040; 87486; 87581; 87633; 87798; 93005; 93041; 94640; 94760; 96374; 99285; J2930; Q9967

== ENCOUNTER 2023-04-14 09:55 | Emergency (ER) | payer MEDICARE, BC, OTHER ==
[~2023-04-14] VITALS: Ht 162.6 cm; Wt 120.5 kg
[~2023-04-14 09:55] MED LIST changes: +ALBU6.7H6 INH; +PRED20TA PO
[2023-04-14 11:28] LABS: RSV AMPLIFICATION NEGATIVE (NEGATIVE)
[2023-04-14] MEDS ORDERED: DOXY-443 PO (13:26)
[2023-04-14 13:34] VITALS: BP 136/74; TEMP 98.5; O2SAT 99
== END 2023-04-14 14:00 | disposition home or self-care (01) ==
LOC: EDBD 09:55 → M ED 09:55
DX: J12.89 Other viral pneumonia (principal); B97.29 Other coronavirus as the cause of diseases classified elsewhere; I10 Essential (primary) hypertension; I51.7 Cardiomegaly; Z79.82 Long term (current) use of aspirin; Z79.899 Other long term (current) drug therapy; Z88.0 Allergy status to penicillin; Z88.2 Allergy status to sulfonamides

== ENCOUNTER → 2023-05-22 | Outpatient (CLI) | payer MEDICARE, BC, OTHER ==
[~2023-05-22] MED LIST changes: +DOXY-443 PO; +OPTI0.5D2 OU; -OPTI0.5D5 OU
== END ==
LOC: M PLARAD 12:24
PROVIDERS: ATTEND Psychiatry & Neurology Neurology
DX: G20.A1 Parkinson's disease without dyskinesia, without mention of fluctuations (principal); G93.9 Disorder of brain, unspecified; R26.81 Unsteadiness on feet; R29.6 Repeated falls

== ENCOUNTER 2023-11-03 10:58 | Day surgery (SDC) | payer MEDICARE, BC ==
[~2023-11-03] VITALS: Ht 160 cm; Wt 111.6 kg
[~2023-11-03 10:58] MED LIST changes: +ACET650T61 PO; +ATOR1TAB21 PO; +CLAR10CA3 PO; +DOXY-323 PO; -DOXY-443 PO; -PARO20TA3; +PARO20TA3 PO; +RAMI10CA64 PO; -RAMI1CAP26 PO; -TORS20TA2; +TORS20TA2 PO
[2023-11-03] MEDS: NS 1,000 ML IV ONE (12:13)
[2023-11-03] MEDS ORDERED: propofoL 200 MG/20 ML VIAL As Ordered ONE (13:02)
[2023-11-03 13:16] VITALS: TEMP 97.1
[2023-11-03 13:34] VITALS: BP 136/82; O2SAT 97
== END 2023-11-03 13:48 | disposition home or self-care (01) ==
LOC: M OPP 10:58
PROVIDERS: ATTEND Surgery
DX: Z12.11 Encounter for screening for malignant neoplasm of colon (principal); K64.0 First degree hemorrhoids; K57.30 Diverticulosis of large intestine without perforation or abscess without bleeding; Z79.02 Long term (current) use of antithrombotics/antiplatelets; Z79.82 Long term (current) use of aspirin; Z79.83 Long term (current) use of bisphosphonates; Z79.899 Other long term (current) drug therapy; Z88.0 Allergy status to penicillin; Z88.2 Allergy status to sulfonamides

== ENCOUNTER → 2023-11-10 | Outpatient (CLI) | payer MEDICARE, BC ==
[2023-11-10 11:34] LABS: CREATININE FOR GFR 1.22 MG/DL (0.55-1.30); GLOMERULAR FILTRATION RATE 45.5 (>39)
== END ==
LOC: M LAB 10:14
PROVIDERS: ATTEND Psychiatry & Neurology Neurology
DX: I10 Essential (primary) hypertension (principal)

== ENCOUNTER → 2024-01-21 | Outpatient (CLI) | payer MEDICARE, BC ==
[~2024-01-21] MED LIST changes: +ISOVUE-370 76% 100ML VIAL As Ordered ONE
[2024-01-21 16:02] LABS: CREATININE FOR GFR 1.15 MG/DL (0.55-1.30); GLOMERULAR FILTRATION RATE 48.7 (>39)
== END ==
LOC: M RAD 14:54
PROVIDERS: ATTEND Physician Assistant Medical
DX: G93.89 Other specified disorders of brain (principal); D49.6 Neoplasm of unspecified behavior of brain; K44.9 Diaphragmatic hernia without obstruction or gangrene; D35.00 Benign neoplasm of unspecified adrenal gland
CPT/HCPCS: 36415; 70496; 71260; 74178; 82565; 84520; Q9967

== ENCOUNTER → 2024-07-28 | Outpatient (CLI) | payer MEDICARE, BC ==
[~2024-07-28] MED LIST changes: -DOXY-323 PO; +DOXY-441 PO; -ISOVUE-370 76% 100ML VIAL As Ordered ONE; +PROHANCE 279.3MG/ML 15ML VIAL ONE; +PROHANCE 279.3MG/ML 5ML VIAL ONE
== END ==
LOC: M PLAIMG 05-24 14:47
PROVIDERS: ATTEND Physician Assistant Medical
DX: G93.89 Other specified disorders of brain (principal)
CPT/HCPCS: 70553; A9576